=== PATIENT | female | born 1985 | race Two or more races ===

== ENCOUNTER 2024-02-11 09:09 | Outpatient (CLI) | payer OTHER | END 2024-02-11 09:18 | disposition home or self-care (01) | LOC: RX STUDY 09:09 | PROVIDERS: ATTEND Obstetrics & Gynecology | DX: N97.1 Female infertility of tubal origin (principal) ==

== ENCOUNTER 2024-12-19 11:11 | Emergency (ER) | payer OTHER ==
[~2024-12-19] VITALS: Ht 154.9 cm; Wt 59.9 kg
[2024-12-19] MEDS ORDERED: PRENATA CHEWAB1 EACH PO (12:08)
[2024-12-19] MEDS ORDERED: ONDANSETRON HCL 2 MG/ML VIAL IV ONE (13:45)
[2024-12-19] MEDS ORDERED: 0.9 % SODIUM CHLORIDE 1,000 ML IV ONE (13:45)
[2024-12-19] MEDS ORDERED: FAMOtidine 10 MG/ML (4ML VIAL) IV ONE (13:45)
[2024-12-19] MEDS ORDERED: ONDANSETRON HCL 2 MG/ML VIAL ONE (14:15)
[2024-12-19] MEDS ORDERED: FAMOTIDINE/PF 20 MG/2 ML VIAL ONE (14:16)
[2024-12-19 14:25] LABS: BASO % 0.5 % (0.1-1.2); EOS # 0.08 (0.04-0.54); EOS % 1.2 % (0.7-7.0); HEMATOCRIT 40.1 % (34.1-44.9); HEMOGLOBIN 14.5 g/dL (11.2-15.7); LYMPH # 1.92 (1.18-3.74); LYMPH % 29.7 % (19.3-53.1); MEAN CORPUSCULAR HEMOGLOBIN 31.1 pg (25.6-32.2); MONO # 0.37 (0.24-0.82); MONO % 5.7 % (4.7-12.5); NEUT # 4.05 (1.56-6.13); NEUT % 62.7 % (34.0-71.1); PLATELET COUNT 263 K/uL (163-369); RED BLOOD COUNT 4.66 M/uL (3.93-5.22); RED CELL DISTRIBUTION WIDTH 10.8 % (11.6-14.4)
[2024-12-19 15:34] LABS: PH,URINE 6.5 (5.0-8.0); URINE APPEARANCE Cloudy; URINE BILIRRUBIN Negative (NEGATIVE); URINE BLOOD Negative; URINE COLOR Dark Yellow; URINE GLUCOSE Negative (NEGATIVE); URINE LEUKOCYTE Negative; URINE NITRATE Negative; URINE PROTEIN Trace (NEGATIVE)
[2024-12-19 15:38] LABS: URINE BACTERIA 9425.8 uL (0.0-1933); URINE EPITHELIAL CELLS 169.2 uL (0.0-38.8); URINE RBC 11.4 uL (0.0-20.8); URINE WBC 55.4 uL (0.0-23.2)
[2024-12-19 15:43] LABS: URINE CAST 0.44 uL (0.0-1.40); URINE KETONE 80 (NEGATIVE)
[2024-12-19] MEDS ORDERED: ZOFRAN8 MG PO (16:24)
[2024-12-19] MEDS ORDERED: PEPCID AC20 MG PO (16:24)
== END 2024-12-19 16:40 | disposition home or self-care (01) ==
LOC: ER 11:11
PROVIDERS: General Practice
DX: O21.8 Other vomiting complicating pregnancy (principal); Z3A.01 Less than 8 weeks gestation of pregnancy; Z88.0 Allergy status to penicillin

== ENCOUNTER 2025-07-06 08:58 | Outpatient (CLI) | payer OTHER ==
[~2025-07-06 08:58] MED LIST: PEPCID AC20 MG PO; PRENATA CHEWAB1 EACH PO; ZOFRAN8 MG PO
== END 2025-07-06 10:00 | disposition home or self-care (01) ==
LOC: NST 08:58
PROVIDERS: ATTEND Obstetrics & Gynecology Maternal & Fetal Medicine
DX: Z34.83 Encounter for supervision of other normal pregnancy, third trimester (principal)

== ENCOUNTER 2025-07-18 12:50 | Outpatient (CLI) | payer OTHER | END 2025-07-18 13:29 | disposition home or self-care (01) | LOC: NST 12:50 | PROVIDERS: ATTEND Obstetrics & Gynecology | DX: Z34.83 Encounter for supervision of other normal pregnancy, third trimester (principal) ==

== ENCOUNTER 2025-07-25 11:00 | Outpatient (CLI) | payer OTHER | END 2025-07-25 13:30 | disposition home or self-care (01) | LOC: NST 11:00 | PROVIDERS: ATTEND Obstetrics & Gynecology | DX: Z34.83 Encounter for supervision of other normal pregnancy, third trimester (principal) ==